=== PATIENT | male | born 1995 | race Caucasian/White ===

== ENCOUNTER 2019-06-16 14:35 | Emergency (ER) | payer OTHER ==
[~2019-06-16] VITALS: Ht 180.3 cm; Wt 100.4 kg
[2019-06-16 14:50] VITALS: Ht 180.3 cm; Wt 100.4 kg
[2019-06-16 17:27] VITALS: BP 134/78
== END 2019-06-16 17:28 | disposition home or self-care (01) ==
LOC: ED 14:35
DX: S51.811A Laceration without foreign body of right forearm, initial encounter (principal); S00.81XA Abrasion of other part of head, initial encounter; W45.8XXA Other foreign body or object entering through skin, initial encounter; Y93.89 Activity, other specified; Y92.89 Other specified places as the place of occurrence of the external cause; Y99.0 Civilian activity done for income or pay
CPT/HCPCS: A4570; J2001

== ENCOUNTER 2019-06-18 08:34 | Emergency (ER) | payer OTHER ==
[~2019-06-18] VITALS: Ht 175.3 cm; Wt 99.8 kg
[2019-06-18 08:43] VITALS: BP 134/81; Ht 175.3 cm; Wt 99.8 kg
== END 2019-06-18 09:04 | disposition home or self-care (01) ==
LOC: ED 08:34
DX: S51.811D Laceration without foreign body of right forearm, subsequent encounter (principal); W45.8XXD Other foreign body or object entering through skin, subsequent encounter